=== PATIENT | male | born 1975 | race Hispanic/Latino ===

== ENCOUNTER 2018-02-22 20:35 | Inpatient (IN) | payer OTHER ==
--- NOTE | 2018-02-22 20:57 | C.PDOC ---
History Of Present Illness 42 year old male presents to the ED c/o burning sensation to right arm and not feeling well overall that started 3 hours ago. Patient states he had a CVA 3 months ago with residual right sided weakness and decreased temperature sensation. Patient reports he also noticed some swelling of his bilateral ankles. Patient denies fever, chills, nausea, vomit, diarrhea, CP, SOB. Time Seen by Provider: 02/22/18 20:57 Chief Complaint (Nursing): Weakness/Neurological Deficit History Per: Patient History/Exam Limitations: no limitations Onset/Duration Of Symptoms: Days Current Symptoms Are (Timing): Still Present Activity At Onset Of Symptoms: Other Seizure Or Post-ictal Symptoms: None Fall Associated With With Symptoms: No Severity: None Recent travel outside of the [place]: No Additional History Per: Patient - Symptoms Of CVA Character Of Deficits: Right: Sensory Loss (burning sensation and decreased temperature sensation), Arm: Sensory Loss Recent Aspirin Use: No Current Coumadin Use?: No Recent Head Trauma: No Past Medical History Reviewed: Historical Data, Nursing Documentation, Vital Signs Vital Signs: Last Vital Signs Temp 98.5 F 02/22/18 20:37 Pulse 117 H 02/22/18 20:37 Resp 20 02/22/18 20:37 BP 168/107 H 02/22/18 20:37 Pulse Ox 93 L 02/22/18 21:58 - Medical History PMH: HTN, Sleep Apnea Surgical History: Appendectomy Family History: States: No Known Family Hx - Social History Hx Alcohol Use: No Hx Substance Use: No - Immunization History Hx Tetanus Toxoid Vaccination: No Hx Influenza Vaccination: No Hx Pneumococcal Vaccination: No Review Of Systems Constitutional: Negative for: Fever, Chills Cardiovascular: Negative for: Chest Pain Respiratory: Negative for: Shortness of Breath Gastrointestinal: Negative for: Nausea, Vomiting, Abdominal Pain Skin: Negative for: Rash Neurological: Positive for: Weakness, Numbness. Negative for: Headache, Dizziness Physical Exam - Physical Exam Appears: Non-toxic, No Acute Distress Skin: Warm, Dry Head: Normacephalic Eye(s): left: Other (mild ptosis) Oral Mucosa: Moist Neck: Supple Chest: Symmetrical Cardiovascular: Rhythm Regular Respiratory: No Rales, No Rhonchi, No Wheezing Gastrointestinal/Abdominal: Soft, No Tenderness, No Guarding, No Rebound Back: Normal Inspection Extremity: Pedal Edema (trace B/L ), Capillary Refill (< 2 seconds) Extremity: Bilateral: Atraumatic, No Pedal Edema, Normal Color And Temperature Pulses: Left Dorsalis Pedis: Normal, Right Dorsalis Pedis: Normal Neurological/Psych: Oriented x3, Normal Speech Gait: With Assistance ED Course And Treatment - Laboratory Results Result Diagrams: 02/22/18 21:19 02/22/18 21:19 ECG: Interpreted By Me, Viewed By Me O2 Sat by Pulse Oximetry: 93 Pulse Ox Interpretation: Abnormal (palced on 2 l NC) - Radiology CXR: Interpreted by Me, Viewed By Me Progress Note: Plan: - CT head. - EKG. - Labs. - CXR NIHSS Stroke Scale 2 - Date/Time Evaluation Performed Date Performed: 02/22/18 Time Performed: 20:35 When Was NIHSS Performed: Baseline - How Severe is the Stroke Level of Consciousness: 0=Alert LOC to Questions: 0=Both comments correct LOC to commands: 0=Obeys both correctly Best Gaze: 0=Normal Visual: 0=No visual loss Facial: 0=Normal Motor Arm - Left: 0=No drift Motor Arm - Right: 0=No drift Motor Leg - Left: 0=No drift Motor Leg - Right: 0=No drift Limb Ataxia: 0=Absent Sensory: 1=Mild to moderate loss Best Language: 0=No aphasia Dysarthia: 0=Normal articulation Extinction & Inattention (Neglect): 0=Normal, no object Score: 1 Disposition Discussed With : Pilo Perez Comment: accepted the pt on his service and took over the care at 12:30 AM Doctor Will See Patient In The: ED Counseled Patient/Family Regarding: Studies Performed, Diagnosis - Disposition Disposition: HOSPITALIZED Disposition Time: 20:57 Condition: FAIR Forms: [facility] (Senegalese) - POA Present On Arrival: Poor Glycemic Control - Clinical Impression Clinical Impression: CHF (congestive heart failure), Paresthesias, Hyperglycemia, Right sided weakness - Scribe Statement The provider has reviewed the documentation as recorded by the Scribe Didier Drummond All medical record entries made by the Scribe were at my direction and personally dictated by me. I have reviewed the chart and agree that the record accurately reflects my personal performance of the history, physical exam, medical decision making, and the department course for this patient. I have also personally directed, reviewed, and agree with the discharge instructions and disposition.
[2018-02-22 21:29] LABS: BASO % 0.2 % (0.0-2.0); EOS # 0.5 K/uL (0.0-0.7); EOS % 6.2 % (0.0-4.0); HEMOGLOBIN 10.9 g/dL (12.0-18.0); LYMPH # 1.3 K/uL (1.0-4.3); LYMPH % 15.7 % (20.0-40.0); MEAN CELL VOLUME 86.5 fL (80.0-94.0); MEAN CORPUSCULAR HEMOGLOBIN 29.4 pg (27.0-31.0); MEAN PLATELET VOLUME 9.1 fL (7.2-11.7); MONO # 0.6 K/uL (0.0-0.8); MONO % 7.5 % (0.0-10.0); NEUT # 5.8 K/uL (1.8-7.0); NEUT % 70.4 % (50.0-75.0); RBC 3.69 Mil/uL (4.40-5.90); RED CELL DISTRIBUTION WIDTH 14.4 % (11.5-14.5); WHITE BLOOD COUNT 8.3 K/uL (4.8-10.8)
[2018-02-22 21:35] LABS: INR 1.3; PROTHROMBIN TIME 13.8 SECONDS (9.7-12.2)
[2018-02-22 21:38] LABS: ALB/GLOB RATIO 0.9 (1.0-2.1); ALBUMIN 3.4 g/dL (3.5-5.0); ALT/SGPT 24 U/L (21-72); AST/SGOT 20 U/L (17-59); BLOOD UREA NITROGEN 18 mg/dL (9-20); CALCIUM 8.7 mg/dl (8.6-10.4); GFR AFRICAN-AMERICAN > 60; GFR NON-AFRICAN AMERICAN > 60; HDL CHOLESTEROL 23 mg/dL (30-70)
[2018-02-22 21:49] LABS: LDL CHOLESTEROL 85 mg/dL (0-129)
--- NOTE | 2018-02-22 22:25 | CT ---
EXAM: CT Head Without Intravenous Contrast CLINICAL HISTORY: 42 years old, male; Pain; Headache and other: HX of CVA, r side paresthisias TECHNIQUE: Axial computed tomography images of the head/brain without intravenous contrast. All CT scans at this facility use one or more dose reduction techniques, viz.: automated exposure control; ma/kV adjustment per patient size (including targeted exams where dose is matched to indication; i.e. head); or iterative reconstruction technique. Coronal and sagittal reformatted images were created and reviewed. COMPARISON: No relevant prior studies available. FINDINGS: Brain: Mild atrophy. No intracranial hemorrhage. No mass. No definite edema. Ventricles: No hydrocephalus. Bones/joints: No acute fracture. Soft tissues: Unremarkable. Vasculature: Mild atherosclerotic disease of intracranial arteries. Sinuses: Mild mucosal thickening/air fluid level of LEFT maxillary sinus. Scattered minimal mucosal thickening of remaining sinuses. Mastoid air cells: No mastoid effusion. Orbits: Unremarkable as visualized. IMPRESSION: 1. No definite acute intracranial abnormality. Acute infarction may be CT occult within first 24 hours. If a focal deficit persists, consider followup CT or MRI for further evaluation. 2. Sinus disease. 3. Incidental/non-acute findings are described above.
[2018-02-23] MEDS ORDERED: Dextrose 50% SYRINGE Inj (50 ml) IV PRN (00:42)
[2018-02-23] MEDS ORDERED: Glucagon Recombinant 1 mg Inj IM PRN (00:42)
--- NOTE | 2018-02-23 01:20 | CP.PCM.HP ---
<Marcelino Crooks - Last Filed: 02/23/18 06:00> History of Present Illness - History of Present Illness History of Present Illness: This is a 42 yo male with past medical hx of stroke (November 2017), HTN, HLD, DM, insulin dependent, presenting today to [facility] ER with chief complaint of leg swelling x 1 day. Pt says he has been having a lot of trouble sleeping and is very depressed. He is on disability and thinking about financial issues. He also recently broke up with his girlfriend. He denies homicidal and suicidal ideation. He says he noticed that his legs were starting to swell and he asked a friend about it. The friend advised him to come to the ER as it could be a sign his heart was in trouble. He denies any chest pain, palpitations, shortness of breath. He had a stroke in November 2017. Initially he presented to [facility] in [place] and was subsequently transferred to [facility] in [place]. He stayed in [facility] for over 3 wks and had a gastric tube inserted. He was discharged to a rehab facility. He has never before seen a boot maker. He denies ever having a stress test or cath. He has a lot of exposure to secondhand smoke. PMD: Previously Dr. Bergman in [place], he just picked a new PMD in [place], [place] Specialists: Due to follow up with neurology but having insurance/financial issues PMH: IDDM, HTN, HLD, stroke PSH: G tube, appendectomy FH: Mother- - heart disease -father- - throat cancer Allergies: NKDA Home meds: asa 81 mg po daily, plavix 75 mg po daily, levemir 5 units sc daily, vitamin D 50,000 units q weekly (recently finished), atorvastatin 80 mg po daily Social hx: Does not smoke, but has a lot of exposure to secondhand smoke. No drinking. Denies drug use. Lives with aunt. 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 On disability. No pets. Born in [place]. Of [place] descent. Recent ER/hospitalizations: no records on file here. Code status: pt needs to clarify Present on Admission - Present on Admission Any Indicators Present on Admission: No History of DVT/PE: No History of Uncontrolled Diabetes: No Urinary Catheter: No Decubitus Ulcer Present: No Review of Systems - Constitutional Constitutional: absent: Chills, Fever - EENT Eyes: absent: Blurred Vision, Change in Vision Ears: Dizziness Nose/Mouth/Throat: absent: Nasal Discharge, Post Nasal Drip, Neck Pain - Cardiovascular Cardiovascular: absent: Chest Pain, Chest Pain at Rest, Diaphoresis, Dyspnea - Respiratory Respiratory: absent: Hemoptysis, Dyspnea on Exertion - Gastrointestinal Gastrointestinal: absent: Hematochezia, Nausea, Vomiting - Genitourinary Genitourinary: absent: Difficulty Urinating, Dysuria - Musculoskeletal Musculoskeletal: absent: Back Pain, Neck Pain - Integumentary Integumentary: absent: Bleeding Lesions, Changing Lesions - Neurological Neurological: Weakness. absent: Abnormal Speech, Behavioral Changes - Psychiatric Psychiatric: Abnormal Sleep Pattern, Anxiety - Hematologic/Lymphatic Hematologic: absent: Easy Bleeding, Easy Bruising Past Patient History - Infectious Disease Hx of Infectious Diseases: None - Tetanus Immunizations Tetanus Immunization: Unknown - Past Medical History & Family History Past Medical History?: Yes Pertinent Family History: heart disease in family - Past Social History Smoking Status: Never Smoked Chewing Tobacco Use: No Cigar Use: No Alcohol: None Drugs: Denies Home Situation {Lives}: With Family Domestic Violence: Negative - CARDIAC Hx Hypertension: Yes - PULMONARY Hx Sleep Apnea: Yes - NEUROLOGICAL HX Cerebrovascular Accident: Yes (3 months ago) - ENDOCRINE/METABOLIC Hx Diabetes Mellitus Type 2: Yes - PSYCHIATRIC Hx Substance Use: No - SURGICAL HISTORY Hx Appendectomy: Yes - ANESTHESIA Hx Anesthesia: Yes Hx Anesthesia Reactions: No Meds Allergies/Adverse Reactions: Allergies Allergy/AdvReac Type Severity Reaction Status Date / Time No Known Allergies Allergy Verified 02/22/18 20:47 Physical Exam - Constitutional Appears: Non-toxic, No Acute Distress - Head Exam Head Exam: ATRAUMATIC, NORMAL INSPECTION, NORMOCEPHALIC - Eye Exam Eye Exam: EOMI - ENT Exam ENT Exam: Mucous Membranes Moist - Neck Exam Neck exam: Positive for: Full Rom, Normal Inspection - Respiratory Exam Respiratory Exam: Decreased Breath Sounds. absent: Respiratory Distress - Cardiovascular Exam Cardiovascular Exam: Tachycardia, +S1, +S2 - GI/Abdominal Exam GI & Abdominal Exam: Normal Bowel Sounds, Soft. absent: Tenderness - Extremities Exam Extremities exam: Positive for: full ROM, pedal edema. Negative for: normal inspection - Neurological Exam Neurological exam: Alert, CN II-XII Intact, Oriented x3 - Psychiatric Exam Psychiatric exam: Flat Affect, Normal Mood - Skin Skin Exam: Dry, Intact, Normal Color, Warm Results - Vital Signs Recent Vital Signs: Last Vital Signs Temp 98.5 F 02/22/18 20:37 Pulse 106 H 02/23/18 00:40 Resp 12 02/23/18 00:40 BP 151/95 H 02/23/18 00:40 Pulse Ox 95 02/23/18 00:40 - Labs Result Diagrams: 02/22/18 21:19 02/22/18 21:19 Labs: Laboratory Results - last 24 hr 02/22/18 02/22/18 02/22/18 21:19 21:19 21:19 WBC 8.3 RBC 3.69 L Hgb 10.9 L Hct 31.9 L MCV 86.5 MCH 29.4 MCHC 34.0 RDW 14.4 Plt Count 245 MPV 9.1 Neut % (Auto) 70.4 Lymph % (Auto) 15.7 L [place] % (Auto) 7.5 Eos % (Auto) 6.2 H Baso % (Auto) 0.2 Neut # (Auto) 5.8 Lymph # (Auto) 1.3 [place] # (Auto) 0.6 Eos # (Auto) 0.5 Baso # (Auto) 0.0 PT 13.8 H INR 1.3 APTT 33 Sodium 142 Potassium 4.7 Chloride 102 Carbon Dioxide 32 H Anion Gap 14 BUN 18 Creatinine 1.2 Est GFR ( Amer) > 60 Est GFR (Non-Af Amer) > 60 Random Glucose 224 H Hemoglobin A1c Calcium 8.7 Total Bilirubin 1.4 H AST 20 ALT 24 Alkaline Phosphatase 87 Troponin I 0.0220 NT-Pro-B Natriuret Pep Total Protein 7.2 Albumin 3.4 L Globulin 3.8 Albumin/Globulin Ratio 0.9 L Triglycerides 196 H Cholesterol 137 LDL Cholesterol Direct 85 HDL Cholesterol 23 L 02/22/18 02/22/18 21:19 23:36 WBC RBC Hgb Hct MCV MCH MCHC RDW Plt Count MPV Neut % (Auto) Lymph % (Auto) [place] % (Auto) Eos % (Auto) Baso % (Auto) Neut # (Auto) Lymph # (Auto) [place] # (Auto) Eos # (Auto) Baso # (Auto) PT INR APTT Sodium Potassium Chloride Carbon Dioxide Anion Gap BUN Creatinine Est GFR ( Amer) Est GFR (Non-Af Amer) Random Glucose Hemoglobin A1c 6.7 H Calcium Total Bilirubin AST ALT Alkaline Phosphatase Troponin I NT-Pro-B Natriuret Pep 3690 H Total Protein Albumin Globulin Albumin/Globulin Ratio Triglycerides Cholesterol LDL Cholesterol Direct HDL Cholesterol Assessment & Plan - Assessment and Plan (Free Text) Assessment: This is a 42 yo male with past medical hx of HTN, HLD, DM, CVA presenting with 1. CHF exacerbation -CXR -trops x 3: 1st one negative -initial EKG sinus tachycardia 111 -no previous ekgs to compare -serial ekgs -cardio consult. Dr. Soni. recs appreciated. -echo pending -I/O -daily weight -lasix 40 mg IV daily -asa 81 mg po daily -HGB a1C 6.7 -lipid panel -TSH and free T4 pending -nasal cannula 2 L/min PRN 2. hx of HTN -continue metoprolol 100 mg po daily 3. hx of CVA -continue asa 81 mg po daily -continue plavix 75 mg po daily -PT/OT 4. hx of HLD -continue crestor 10 mg po hs 5. hx of DM -hypoglycemia protocol -regular insulin sliding scale -accuchecks -HGB a1C 6.7 6. Anemia -normocytic -LDH, haptoglobin -stool occult blood -iron studies 7. GI/DVT ppx -protonix 40 mg iv daily -SCDs -CCD diet discussed with Dr. Perez <Pilo Perez - Last Filed: 02/23/18 06:28> Results - Vital Signs Recent Vital Signs: Last Vital Signs Temp 98.0 F 02/23/18 05:32 Pulse 106 H 02/23/18 05:32 Resp 20 02/23/18 05:32 BP 154/90 H 02/23/18 05:32 Pulse Ox 96 02/23/18 05:32 - Labs Result Diagrams: 02/22/18 21:19 02/22/18 21:19 Labs: Laboratory Results - last 24 hr 02/22/18 02/22/18 02/22/18 21:19 21:19 21:19 WBC 8.3 RBC 3.69 L Hgb 10.9 L Hct 31.9 L MCV 86.5 MCH 29.4 MCHC 34.0 RDW 14.4 Plt Count 245 MPV 9.1 Neut % (Auto) 70.4 Lymph % (Auto) 15.7 L [place] % (Auto) 7.5 Eos % (Auto) 6.2 H Baso % (Auto) 0.2 Neut # (Auto) 5.8 Lymph # (Auto) 1.3 [place] # (Auto) 0.6 Eos # (Auto) 0.5 Baso # (Auto) 0.0 Haptoglobin PT 13.8 H INR 1.3 APTT 33 Sodium 142 Potassium 4.7 Chloride 102 Carbon Dioxide 32 H Anion Gap 14 BUN 18 Creatinine 1.2 Est GFR ( Amer) > 60 Est GFR (Non-Af Amer) > 60 POC Glucose (mg/dL) Random Glucose 224 H Hemoglobin A1c Calcium 8.7 Ferritin Total Bilirubin 1.4 H AST 20 ALT 24 Alkaline Phosphatase 87 Total Creatine Kinase CK-MB (Mass) Troponin I 0.0220 NT-Pro-B Natriuret Pep Total Protein 7.2 Albumin 3.4 L Globulin 3.8 Albumin/Globulin Ratio 0.9 L Triglycerides 196 H Cholesterol 137 LDL Cholesterol Direct 85 HDL Cholesterol 23 L 02/22/18 02/22/18 02/23/18 21:19 23:36 03:36 WBC RBC Hgb Hct MCV MCH MCHC RDW Plt Count MPV Neut % (Auto) Lymph % (Auto) [place] % (Auto) Eos % (Auto) Baso % (Auto) Neut # (Auto) Lymph # (Auto) [place] # (Auto) Eos # (Auto) Baso # (Auto) Haptoglobin PT INR APTT Sodium Potassium Chloride Carbon Dioxide Anion Gap BUN Creatinine Est GFR ( Amer) Est GFR (Non-Af Amer) POC Glucose (mg/dL) Random Glucose Hemoglobin A1c 6.7 H Calcium Ferritin 179.0 Total Bilirubin AST ALT Alkaline Phosphatase Total Creatine Kinase CK-MB (Mass) Troponin I NT-Pro-B Natriuret Pep 3690 H Total Protein Albumin Globulin Albumin/Globulin Ratio Triglycerides Cholesterol LDL Cholesterol Direct HDL Cholesterol 02/23/18 02/23/18 02/23/18 03:36 03:45 06:17 WBC RBC Hgb Hct MCV MCH MCHC RDW Plt Count MPV Neut % (Auto) Lymph % (Auto) [place] % (Auto) Eos % (Auto) Baso % (Auto) Neut # (Auto) Lymph # (Auto) [place] # (Auto) Eos # (Auto) Baso # (Auto) Haptoglobin 204.5 H PT INR APTT Sodium Potassium Chloride Carbon Dioxide Anion Gap BUN Creatinine Est GFR ( Amer) Est GFR (Non-Af Amer) POC Glucose (mg/dL) 194 H Random Glucose Hemoglobin A1c Calcium Ferritin Total Bilirubin AST ALT Alkaline Phosphatase Total Creatine Kinase 110 CK-MB (Mass) 1.99 Troponin I 0.0270 NT-Pro-B Natriuret Pep Total Protein Albumin Globulin Albumin/Globulin Ratio Triglycerides Cholesterol LDL Cholesterol Direct HDL Cholesterol Assessment & Plan - Date & Time Date: 02/23/18 (I have seen and examined the patient. I agree with the findings and plan of care as documented by Dr. Crooks. Patient with CHF exacerbation. Lasix IV. ROMIx3 with EKG. Aspirin and Statin. Cardio consult. Also with history of CVA and diabetes. Continue home meds. NISS and accuchecks. Monitor for acute changes.) Time: 06:27 Attending/Attestation - Attestation I have personally seen and examined this patient.: Yes I have fully participated in the care of the patient.: Yes I have reviewed all pertinent clinical information: Yes
[2018-02-23 04:12] LABS: CK-MB 1.99 ng/mL (0.0-3.38); TROPONIN I 0.027 ng/mL (0.00-0.120)
[2018-02-23 05:33] VITALS: RESP 20
[2018-02-23 07:08] LABS: FREE T4 1.31 ng/dL (0.78-2.19)
--- NOTE | 2018-02-23 07:50 | CP.PCM.PN ---
<HarryDodie rooney - Last Filed: 02/23/18 13:32> Subjective - Date & Time of Evaluation Date of Evaluation: 02/23/18 Time of Evaluation: 07:00 - Subjective Subjective: Medicine Progress Note: Patient was seen and examined at bedside in the AM. Patient states he has had leg swelling for a few days and his cousin told him to come to the ER to get evaluated. Patient states he has never been seen by a seafood fisherman in the past. He currently denies chest pain, palpitations, shortness of breath, nausea , vomiting, diarrhea or constipations. Objective - Vital Signs/Intake and Output Vital Signs (last 24 hours): Temp Pulse Resp BP Pulse Ox 98.0 F 106 H 20 154/90 H 96 02/23/18 05:32 02/23/18 05:32 02/23/18 05:32 02/23/18 05:32 02/23/18 05:32 - Medications Medications: Current Medications Aspirin (Aspirin Chewable) 81 mg PO DAILY [facility] Clopidogrel Bisulfate (Plavix) 75 mg PO DAILY [facility] Dextrose (Dextrose 50% Inj) 0 ml IV STAT PRN; Protocol PRN Reason: Hypoglycemia Protocol Dextrose (Glutose 15) 0 gm PO ONCE PRN; Protocol PRN Reason: Hypoglycemia Protocol Furosemide (Lasix) 40 mg IVP DAILY AN[facility] Glucagon (Glucagen Diagnostic Kit) 0 mg IM STAT PRN; Protocol PRN Reason: Hypoglycemia Protocol Dextrose (Dextrose 5% In Water 1000 Ml) 1,000 mls @ 0 mls/hr IV .Q0M PRN; Protocol; Per Protocol PRN Reason: Hypoglycemia Protocol Insulin Human Regular (Novolin R) 0 unit SC ACHS [facility] PRN Reason: Protocol Metoprolol Succinate (Toprol Xl) 100 mg PO DAILY ANTON[facility] Pantoprazole Sodium (Protonix Inj) 40 mg IVP DAILY [facility] Rosuvastatin Calcium (Crestor) 10 mg PO HS ANTONY - Labs Labs: 02/22/18 21:19 02/22/18 21:19 PT 13.8 SECONDS (9.7-12.2) H 02/22/18 21:19 INR 1.3 02/22/18 21:19 APTT 33 SECONDS (21-34) 02/22/18 21:19 - Constitutional Appears: No Acute Distress - Head Exam Head Exam: ATRAUMATIC, NORMAL INSPECTION - Eye Exam Eye Exam: EOMI, Normal appearance - ENT Exam ENT Exam: Mucous Membranes Moist - Respiratory Exam Respiratory Exam: Clear to Ausculation Bilateral, NORMAL BREATHING PATTERN - Cardiovascular Exam Cardiovascular Exam: REGULAR RHYTHM, +S1, +S2 - GI/Abdominal Exam GI & Abdominal Exam: Soft, Normal Bowel Sounds. absent: Tenderness - Extremities Exam Extremities Exam: Pedal Edema (+1 bilateral pedal edema ) - Neurological Exam Neurological Exam: Alert, Awake, Oriented x3 - Psychiatric Exam Psychiatric exam: Normal Affect, Normal Mood - Skin Skin Exam: Normal Color Assessment and Plan - Assessment and Plan (Free Text) Assessment: LE Swelling secondary to CHF exacerbation - Patient admitted to tele - ProBNP 3690 - Chest Xray: Right perihilar and medial basilar infiltrates. Questionable CHF pattern. - Trops x 2: Negative - Initial EKG sinus tachycardia 111; 2nd EKG Sinus tach 101 - Cardiology Consult: Dr. Schaffer --> help appreciated - f/u Echo - f/u LE dopplers - I/O - Daily weight - Medications * Lasix 40 mg IV BID * Aspirin 81 mg po daily - Nasal cannula 2 L/min PRN History of HTN - TSH 2.36; free T4 1.31 - Medications * Metoprolol 100 mg po daily * Lisinopril 10mg po daily (started 02/23/18) History of CVA in November 2017 - Continue Aspirin 81 mg po daily - Continue Plavix 75 mg po daily - PT/OT History of HLD - Continue Crestor 10 mg po HS - Lipid Panel: Triglycerides 196; Total Cholesterol 137; LDL 85; HDL 23 History of DM - Hypoglycemia protocol - Insulin sliding scale - Accuchecks - hA1c 6.7 History of Anemia - 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 Isaura Harry PGY-1 <Cody Delarosa - Last Filed: 02/23/18 15:47> Objective - Vital Signs/Intake and Output Vital Signs (last 24 hours): Temp Pulse Resp BP Pulse Ox 98.0 F 99 H 20 152/86 H 96 02/23/18 05:32 02/23/18 12:00 02/23/18 05:32 02/23/18 09:25 02/23/18 05:32 - Medications Medications: Current Medications Aspirin (Aspirin Chewable) 81 mg PO DAILY [facility] Last Admin: 02/23/18 09:23 Dose: 81 mg Clopidogrel Bisulfate (Plavix) 75 mg PO DAILY [facility] Last Admin: 02/23/18 09:23 Dose: 75 mg Dextrose (Dextrose 50% Inj) 0 ml IV STAT PRN; Protocol PRN Reason: Hypoglycemia Protocol Dextrose (Glutose 15) 0 gm PO ONCE PRN; Protocol PRN Reason: Hypoglycemia Protocol Docusate Sodium (Colace) 100 mg PO TID [facility] Last Admin: 02/23/18 10:38 Dose: 100 mg Famotidine (Pepcid) 20 mg PO BID [facility] Last Admin: 02/23/18 10:38 Dose: 20 mg Ferrous Sulfate (Feosol) 325 mg PO DAILY [facility] Last Admin: 02/23/18 10:38 Dose: 325 mg Furosemide (Lasix) 40 mg IVP BID [facility] Last Admin: 02/23/18 09:25 Dose: 40 mg Glucagon (Glucagen Diagnostic Kit) 0 mg IM STAT PRN; Protocol PRN Reason: Hypoglycemia Protocol Heparin Sodium (Porcine) (Heparin) 5,000 units SC Q8 [facility] Dextrose (Dextrose 5% In Water 1000 Ml) 1,000 mls @ 0 mls/hr IV .Q0M PRN; Protocol; Per Protocol PRN Reason: Hypoglycemia Protocol Insulin Human Regular (Novolin R) 0 unit SC ACHS [facility] PRN Reason: Protocol Last Admin: 02/23/18 12:46 Dose: 2 unit Lisinopril (Zestril) 10 mg PO DAILY [facility] Last Admin: 02/23/18 11:52 Dose: 10 mg Metoprolol Succinate (Toprol Xl) 100 mg PO DAILY [facility] Last Admin: 02/23/18 09:23 Dose: 100 mg Pneumococcal Polyvalent Vaccine (Pneumovax 23 Vaccine) 0.5 ml IM .ONCE ONE Stop: 02/25/18 10:01 Rosuvastatin Calcium (Crestor) 10 mg PO HS [facility] - Labs Labs: 02/23/18 10:18 02/23/18 10:53 PT 13.8 SECONDS (9.7-12.2) H 02/22/18 21:19 INR 1.3 02/22/18 21:19 APTT 33 SECONDS (21-34) 02/22/18 21:19 Attending/Attestation - Attestation I have personally seen and examined this patient.: Yes I have fully participated in the care of the patient.: Yes I have reviewed all pertinent clinical information, including history, physical exam and plan: Yes Notes (Text): 02/23/18 15:44 Medical attending: Patient was seen and examined by me. Agree with the above note by the resident The patient was not in any acute distress when we saw him. There was still some trace edema on lower extremtities. He had a chest XRAY last night, there is cardiomegaly on the film. He is pending an echo at this time. He has a history of DM as well as a recent CVA. It appears the CVA was quite severe as he required what appears to be a PEG tube he says. There is an area on the abdomen that looks like a closed off stoma site. He was at [facility] for sometime before he was then discharged to a rehabilitation center where he was for some time. Cody Delarosa
[2018-02-23 08:12] LABS: IRON 41 ug/dL (49-181); TOTAL IRON BINDING CAPACITY 274 ug/dL (250-450)
[2018-02-23 08:14] LABS: % IRON SATURATION 15 (20-55)
--- NOTE | 2018-02-23 08:16 | RAD ---
HISTORY: Code Stroke COMPARISON: No prior. FINDINGS: LUNGS: Right perihilar and medial basilar airspace disease identified with none on the left. PLEURA: No significant pleural effusion identified, no pneumothorax apparent. CARDIOVASCULAR: Cardiomegaly is present with potential pulmonary vascular congestion. OSSEOUS STRUCTURES: No significant abnormalities. VISUALIZED UPPER ABDOMEN: Normal. OTHER FINDINGS: None. IMPRESSION: Right perihilar and medial basilar infiltrates. Questionable CHF pattern. Clinically correlate further.
[2018-02-23] MEDS: (Novolin R) Insulin Human Regular 100 units/ml vial SC SCH ×4 (08:42→21:17)
[2018-02-23] MEDS: Metoprolol Succinate 100 mg XL Tab PO SCH (09:23)
[2018-02-23 10:21] LABS: BASO % 0.1 % (0.0-2.0); EOS # 0.4 K/uL (0.0-0.7); EOS % 4.9 % (0.0-4.0); LYMPH # 1.2 K/uL (1.0-4.3); LYMPH % 14.4 % (20.0-40.0); MEAN CELL VOLUME 87.6 fL (80.0-94.0); MEAN CORPUSCULAR HEMOGLOBIN 29.6 pg (27.0-31.0); MEAN CORPUSCULAR HGB CONC 33.8 g/dL (33.0-37.0); MEAN PLATELET VOLUME 9.5 fL (7.2-11.7); MONO # 0.6 K/uL (0.0-0.8); NEUT # 6.2 K/uL (1.8-7.0); NEUT % 73.6 % (50.0-75.0); RBC 3.72 Mil/uL (4.40-5.90); RED CELL DISTRIBUTION WIDTH 14.5 % (11.5-14.5); WHITE BLOOD COUNT 8.4 K/uL (4.8-10.8)
[2018-02-23 10:33] LABS: CK-MB 2.31 ng/mL (0.0-3.38)
[2018-02-23 10:37] LABS: TROPONIN I 0.026 ng/mL (0.00-0.120)
[2018-02-23 11:29] LABS: ALB/GLOB RATIO 0.9 (1.0-2.1); ALBUMIN 3.5 g/dL (3.5-5.0); ALT/SGPT 28 U/L (21-72); AST/SGOT 26 U/L (17-59); BLOOD UREA NITROGEN 20 mg/dL (9-20); CALCIUM 8.9 mg/dl (8.6-10.4); GFR AFRICAN-AMERICAN > 60; GFR NON-AFRICAN AMERICAN > 60
[2018-02-24 07:43] LABS: BASO % 0.1 % (0.0-2.0); EOS # 0.4 K/uL (0.0-0.7); EOS % 4.1 % (0.0-4.0); HEMOGLOBIN 11.1 g/dL (12.0-18.0); LYMPH # 0.9 K/uL (1.0-4.3); LYMPH % 9.6 % (20.0-40.0); MEAN CELL VOLUME 87.5 fL (80.0-94.0); MEAN CORPUSCULAR HEMOGLOBIN 29.8 pg (27.0-31.0); MEAN PLATELET VOLUME 9.4 fL (7.2-11.7); MONO # 0.7 K/uL (0.0-0.8); MONO % 7.1 % (0.0-10.0); NEUT # 7.6 K/uL (1.8-7.0); NEUT % 79.1 % (50.0-75.0); PLATELET COUNT 229 K/uL (130-400); RBC 3.72 Mil/uL (4.40-5.90); RED CELL DISTRIBUTION WIDTH 14.6 % (11.5-14.5); WHITE BLOOD COUNT 9.6 K/uL (4.8-10.8)
[2018-02-24 07:58] LABS: ALT/SGPT 14 U/L (21-72); AST/SGOT 22 U/L (17-59); BLOOD UREA NITROGEN 24 mg/dL (9-20); CALCIUM 8.9 mg/dl (8.6-10.4); GFR AFRICAN-AMERICAN > 60; GFR NON-AFRICAN AMERICAN > 60
[2018-02-24] MEDS: (Novolin R) Insulin Human Regular 100 units/ml vial SC SCH ×4 (08:00→21:43)
[2018-02-24 09:11] LABS: EOSINOPHIL 2 % (0-4); LYMPHOCYTE 4 % (20-40); MONOCYTE 2 % (0-10); NEUTROPHIL 92 % (50-75); PLATELET ESTIMATE NORMAL (NORMAL); TOTAL CELLS COUNTED 100
[2018-02-24] MEDS: Metoprolol Succinate 100 mg XL Tab PO SCH (09:42)
--- NOTE | 2018-02-24 11:36 | CARD ---
APPROVED REPORT EKG Measurement Heart [id number] <Conclusion> Sinus tachycardia Possible Left atrial enlargement Nonspecific T wave abnormality Abnormal ECG
--- NOTE | 2018-02-24 13:18 | CP.PCM.PN ---
<JoshuaLupe - Last Filed: 02/24/18 13:22> Subjective - Date & Time of Evaluation Date of Evaluation: 02/24/18 Time of Evaluation: 13:22 - Subjective Subjective: Progress Note Patient was seen and examined at bedside. Patient states that he is feeling better. Patient denies recent changes in vision, chest pain, palpitations, shortness of breath, nausea, vomiting, diarrhea or constipations. Objective - Vital Signs/Intake and Output Vital Signs (last 24 hours): Temp Pulse Resp BP Pulse Ox 97.8 F 102 H 20 146/87 94 L 02/24/18 07:10 02/24/18 07:35 02/24/18 07:10 02/24/18 09:42 02/24/18 07:10 Intake and Output: 02/24/18 02/24/18 06:59 18:59 Intake Total 480 Balance 480 - Medications Medications: Current Medications Aspirin (Aspirin Chewable) 81 mg PO DAILY [facility] Last Admin: 02/24/18 09:42 Dose: 81 mg Clopidogrel Bisulfate (Plavix) 75 mg PO DAILY [facility] Last Admin: 02/24/18 09:42 Dose: 75 mg Dextrose (Dextrose 50% Inj) 0 ml IV STAT PRN; Protocol PRN Reason: Hypoglycemia Protocol Dextrose (Glutose 15) 0 gm PO ONCE PRN; Protocol PRN Reason: Hypoglycemia Protocol Docusate Sodium (Colace) 100 mg PO TID [facility] Last Admin: 02/24/18 09:42 Dose: 100 mg Famotidine (Pepcid) 20 mg PO BID [facility] Last Admin: 02/24/18 09:41 Dose: 20 mg Ferrous Sulfate (Feosol) 325 mg PO DAILY [facility] Last Admin: 02/24/18 09:41 Dose: 325 mg Furosemide (Lasix) 40 mg IVP BID [facility] Last Admin: 02/24/18 09:42 Dose: 40 mg Glucagon (Glucagen Diagnostic Kit) 0 mg IM STAT PRN; Protocol PRN Reason: Hypoglycemia Protocol Heparin Sodium (Porcine) (Heparin) 5,000 units SC Q8 [facility] Last Admin: 02/24/18 05:35 Dose: 5,000 units Dextrose (Dextrose 5% In Water 1000 Ml) 1,000 mls @ 0 mls/hr IV .Q0M PRN; Protocol; Per Protocol PRN Reason: Hypoglycemia Protocol Insulin Human Regular (Novolin R) 0 unit SC ACHS [facility] PRN Reason: Protocol Last Admin: 02/24/18 12:30 Dose: 3 unit Lisinopril (Zestril) 10 mg PO DAILY [facility] Last Admin: 02/24/18 09:42 Dose: 10 mg Metoprolol Succinate (Toprol Xl) 100 mg PO DAILY [facility] Last Admin: 02/24/18 09:42 Dose: 100 mg Pneumococcal Polyvalent Vaccine (Pneumovax 23 Vaccine) 0.5 ml IM .ONCE ONE Stop: 02/25/18 10:01 Rosuvastatin Calcium (Crestor) 10 mg PO [facility] Last Admin: 02/23/18 21:20 Dose: 10 mg - Labs Labs: 02/24/18 07:25 02/24/18 07:25 PT 13.8 SECONDS (9.7-12.2) H 02/22/18 21:19 INR 1.3 02/22/18 21:19 APTT 33 SECONDS (21-34) 02/22/18 21:19 - Additional Findings Additional findings: - Head Exam Head Exam: ATRAUMATIC, NORMAL INSPECTION - Eye Exam Eye Exam: EOMI, Normal appearance - ENT Exam ENT Exam: Mucous Membranes Moist - Respiratory Exam Respiratory Exam: Clear to Ausculation Bilateral, NORMAL BREATHING PATTERN - Cardiovascular Exam Cardiovascular Exam: REGULAR RHYTHM, +S1, +S2 - GI/Abdominal Exam GI & Abdominal Exam: Soft, Normal Bowel Sounds. absent: Tenderness - Extremities Exam Extremities Exam: Pedal Edema (+1 bilateral pedal edema ) - Neurological Exam Neurological Exam: Alert, Awake, Oriented x3 - Psychiatric Exam Psychiatric exam: Normal Affect, Normal Mood - Skin Skin Exam: Normal Color Assessment and Plan - Assessment and Plan (Free Text) Assessment: LE Swelling, secondary to CHF exacerbation - Patient admitted to tele - ProBNP 3690 - Chest Xray: Right perihilar and medial basilar infiltrates. Questionable CHF pattern. - Trops x 2: Negative - Initial EKG sinus tachycardia 111; 2nd EKG Sinus tach 101 - Cardiology Consult: Dr. Schaffer - f/u Echo - f/u LE dopplers - F/u AM CXR 02/25 - I/O - Daily weight - Medications * Lasix 40 mg IV BID * Aspirin 81 mg po daily - Nasal cannula 2 L/min PRN History of HTN - TSH 2.36; free T4 1.31 - Medications * Metoprolol 100 mg po daily * Lisinopril 10mg po daily (started 02/23/18) History of CVA in November 2017 - Continue Aspirin 81 mg po daily - Continue Plavix 75 mg po daily - PT/OT: patient has a walker at bedside. 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 Isaura Harry PGY-1 <Cody Delarosa - Last Filed: 02/24/18 15:52> Objective - Vital Signs/Intake and Output Vital Signs (last 24 hours): Temp Pulse Resp BP Pulse Ox 97.8 F 102 H 20 146/87 94 L 02/24/18 07:10 02/24/18 07:35 02/24/18 07:10 02/24/18 09:42 02/24/18 07:10 Intake and Output: 02/24/18 02/24/18 06:59 18:59 Intake Total 480 400 Balance 480 400 - Medications Medications: Current Medications Aspirin (Aspirin Chewable) 81 mg PO DAILY [facility] Last Admin: 02/24/18 09:42 Dose: 81 mg Clopidogrel Bisulfate (Plavix) 75 mg PO DAILY [facility] Last Admin: 02/24/18 09:42 Dose: 75 mg Dextrose (Dextrose 50% Inj) 0 ml IV STAT PRN; Protocol PRN Reason: Hypoglycemia Protocol Dextrose (Glutose 15) 0 gm PO ONCE PRN; Protocol PRN Reason: Hypoglycemia Protocol Docusate Sodium (Colace) 100 mg PO TID [facility] Last Admin: 02/24/18 13:17 Dose: 100 mg Famotidine (Pepcid) 20 mg PO BID [facility] Last Admin: 02/24/18 09:41 Dose: 20 mg Ferrous Sulfate (Feosol) 325 mg PO DAILY [facility] Last Admin: 02/24/18 09:41 Dose: 325 mg Furosemide (Lasix) 40 mg PO DAILY [facility] Glucagon (Glucagen Diagnostic Kit) 0 mg IM STAT PRN; Protocol PRN Reason: Hypoglycemia Protocol Heparin Sodium (Porcine) (Heparin) 5,000 units SC Q8 [facility] Last Admin: 02/24/18 13:17 Dose: 5,000 units Dextrose (Dextrose 5% In Water 1000 Ml) 1,000 mls @ 0 mls/hr IV .Q0M PRN; Protocol; Per Protocol PRN Reason: Hypoglycemia Protocol Insulin Human Regular (Novolin R) 0 unit SC ACHS [facility] PRN Reason: Protocol Last Admin: 02/24/18 12:30 Dose: 3 unit Lisinopril (Zestril) 10 mg PO BID [facility] Metoprolol Succinate (Toprol Xl) 100 mg PO DAILY [facility] Last Admin: 02/24/18 09:42 Dose: 100 mg Pneumococcal Polyvalent Vaccine (Pneumovax 23 Vaccine) 0.5 ml IM .ONCE ONE Stop: 02/25/18 10:01 Rosuvastatin Calcium (Crestor) 10 mg PO HS [facility] Last Admin: 02/23/18 21:20 Dose: 10 mg Spironolactone (Aldactone) 25 mg PO DAILY [facility] - Labs Labs: 02/24/18 07:25 02/24/18 07:25 PT 13.8 SECONDS (9.7-12.2) H 02/22/18 21:19 INR 1.3 02/22/18 21:19 APTT 33 SECONDS (21-34) 02/22/18 21:19 Attending/Attestation - Attestation I have personally seen and examined this patient.: Yes I have fully participated in the care of the patient.: Yes I have reviewed all pertinent clinical information, including history, physical exam and plan: Yes Notes (Text): 02/24/18 15:52 Medical Attending: Patient was seen and examined by me, agree with the above note by medical records director. Patient was not in any acute distress when we saw him. He was calm, normal affect, answering questions appropriately He reported that his breathing has been better, and also the lower extremity edema which brought him and has also substantially decreased as well. Earlier in the day he underwent a echocardiogram, the results are still pending at this moment Cody Delarosa
--- NOTE | 2018-02-24 14:30 | CP.PCM.CON ---
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 He had a stroke, and was seen at [facility], then transferred to [facility]. Pt did not get TPA. Pt had an NGT, the g tube, due to poor swallowing. Pt was in our area, visiting a cousin. pt had increased leg edema, and came to the hospital. Pt has mild chf on the cxr, elevated BNP. Echo demonstrates LV EF of about 30-35%, cannot interpret diastolic function. No sig pulmonary HTN. ECG shows s tach, non specific st changes. Pt has residual weakness, sues a walker, has paind ans sensory deprivation right side, Right eye strabismus. No known CAD. Pos for HTN. Non compliant with sleep apnea treatment with cpap. Review of Systems - Review of Systems All systems: reviewed and no additional remarkable complaints except (as abovee) Past Patient History - Infectious Disease Hx of Infectious Diseases: None - Tetanus Immunizations Tetanus Immunization: Unknown - Past Medical History & Family History Past Medical History?: Yes - Past Social History Smoking Status: Never Smoked - CARDIAC Hx Hypertension: Yes - PULMONARY Hx Respiratory Disorders: Yes Hx Sleep Apnea: Yes - NEUROLOGICAL HX Cerebrovascular Accident: Yes - HEENT Hx HEENT Problems: No - RENAL Hx Chronic Kidney Disease: No - ENDOCRINE/METABOLIC Hx Endocrine Disorders: Yes Hx Diabetes Mellitus Type 2: Yes - HEMATOLOGICAL/ONCOLOGICAL Hx Blood Disorders: No - INTEGUMENTARY Hx Dermatological Problems: No - MUSCULOSKELETAL/RHEUMATOLOGICAL Hx Falls: Yes - GASTROINTESTINAL Hx Gastrointestinal Disorders: No - GENITOURINARY/GYNECOLOGICAL Hx Genitourinary Disorders: No - PSYCHIATRIC Hx Substance Use: No - SURGICAL HISTORY Hx Surgeries: Yes Hx Appendectomy: Yes Other/Comment: no other information added given by patient - ANESTHESIA Hx Anesthesia: Yes Hx Anesthesia Reactions: No Hx Malignant Hyperthermia: No Has any member of the family had a problem w/ anesthesia?: No Meds Allergies/Adverse Reactions: Allergies Allergy/AdvReac Type Severity Reaction Status Date / Time No Known Allergies Allergy Verified 02/22/18 20:47 - Medications Medications: Current Medications Aspirin (Aspirin Chewable) 81 mg PO DAILY [facility] Last Admin: 02/24/18 09:42 Dose: 81 mg Clopidogrel Bisulfate (Plavix) 75 mg PO DAILY [facility] Last Admin: 02/24/18 09:42 Dose: 75 mg Dextrose (Dextrose 50% Inj) 0 ml IV STAT PRN; Protocol PRN Reason: Hypoglycemia Protocol Dextrose (Glutose 15) 0 gm PO ONCE PRN; Protocol PRN Reason: Hypoglycemia Protocol Docusate Sodium (Colace) 100 mg PO TID [facility] Last Admin: 02/24/18 13:17 Dose: 100 mg Famotidine (Pepcid) 20 mg PO BID [facility] Last Admin: 02/24/18 09:41 Dose: 20 mg Ferrous Sulfate (Feosol) 325 mg PO DAILY [facility] Last Admin: 02/24/18 09:41 Dose: 325 mg Furosemide (Lasix) 40 mg IVP BID [facility] Last Admin: 02/24/18 09:42 Dose: 40 mg Glucagon (Glucagen Diagnostic Kit) 0 mg IM STAT PRN; Protocol PRN Reason: Hypoglycemia Protocol Heparin Sodium (Porcine) (Heparin) 5,000 units SC Q8 [facility] Last Admin: 02/24/18 13:17 Dose: 5,000 units Dextrose (Dextrose 5% In Water 1000 Ml) 1,000 mls @ 0 mls/hr IV .Q0M PRN; Protocol; Per Protocol PRN Reason: Hypoglycemia Protocol Insulin Human Regular (Novolin R) 0 unit SC ACHS [facility] PRN Reason: Protocol Last Admin: 02/24/18 12:30 Dose: 3 unit Lisinopril (Zestril) 10 mg PO DAILY [facility] Last Admin: 02/24/18 09:42 Dose: 10 mg Metoprolol Succinate (Toprol Xl) 100 mg PO DAILY [facility] Last Admin: 02/24/18 09:42 Dose: 100 mg Pneumococcal Polyvalent Vaccine (Pneumovax 23 Vaccine) 0.5 ml IM .ONCE ONE Stop: 02/25/18 10:01 Rosuvastatin Calcium (Crestor) 10 mg PO [facility] Last Admin: 02/23/18 21:20 Dose: 10 mg Physical Exam - Constitutional Appears: Well - Head Exam Head Exam: ATRAUMATIC - ENT Exam ENT Exam: Mucous Membranes Dry - Neck Exam Neck exam: Positive for: Full Rom - Respiratory Exam Respiratory Exam: Clear to Auscultation Bilateral - Cardiovascular Exam Cardiovascular Exam: REGULAR RHYTHM - GI/Abdominal Exam GI & Abdominal Exam: Normal Bowel Sounds - Exam External exam: Swelling - Extremities Exam Extremities exam: Positive for: pedal edema - Back Exam Back exam: NORMAL INSPECTION - Neurological Exam Neurological exam: Alert, Motor Sensory Deficit, Oriented x3, Reflexes Normal - Psychiatric Exam Psychiatric exam: Normal Affect, Normal Mood - Skin Skin Exam: Normal Color Results - Vital Signs Recent Vital Signs: Last Vital Signs Temp 97.8 F 02/24/18 07:10 Pulse 102 H 02/24/18 07:35 Resp 20 02/24/18 07:10 BP 146/87 02/24/18 09:42 Pulse Ox 94 L 02/24/18 07:10 - Labs Result Diagrams: 02/24/18 07:25 02/24/18 07:25 Labs: Laboratory Results - last 24 hr 02/22/18 02/23/18 02/23/18 20:50 16:31 20:50 WBC RBC Hgb Hct MCV MCH MCHC RDW Plt Count MPV Neut % (Auto) Lymph % (Auto) [place] % (Auto) Eos % (Auto) Baso % (Auto) Neut # (Auto) Lymph # (Auto) [place] # (Auto) Eos # (Auto) Baso # (Auto) Neutrophils % (Manual) Lymphocytes % (Manual) Monocytes % (Manual) Eosinophils % (Manual) Platelet Estimate RBC Morphology Sodium Potassium Chloride Carbon Dioxide Anion Gap BUN Creatinine Est GFR ( Amer) Est GFR (Non-Af Amer) POC Glucose (mg/dL) 252 H 173 H 149 H Random Glucose Calcium Phosphorus Magnesium Total Bilirubin AST ALT Alkaline Phosphatase Total Protein Albumin Globulin Albumin/Globulin Ratio 02/24/18 02/24/18 02/24/18 06:19 07:25 07:25 WBC 9.6 RBC 3.72 L Hgb 11.1 L Hct 32.5 L MCV 87.5 MCH 29.8 MCHC 34.0 RDW 14.6 H Plt Count 229 MPV 9.4 Neut % (Auto) 79.1 H Lymph % (Auto) 9.6 L [place] % (Auto) 7.1 Eos % (Auto) 4.1 H Baso % (Auto) 0.1 Neut # (Auto) 7.6 H Lymph # (Auto) 0.9 L [place] # (Auto) 0.7 Eos # (Auto) 0.4 Baso # (Auto) 0.0 Neutrophils % (Manual) 92 H Lymphocytes % (Manual) 4 L Monocytes % (Manual) 2 Eosinophils % (Manual) 2 Platelet Estimate Normal RBC Morphology Normal Sodium 145 Potassium 4.6 Chloride 99 Carbon Dioxide 36 H Anion Gap 15 BUN 24 H Creatinine 1.2 Est GFR ( Amer) > 60 Est GFR (Non-Af Amer) > 60 POC Glucose (mg/dL) 218 H Random Glucose 190 H Calcium 8.9 Phosphorus 5.1 H Magnesium 2.2 Total Bilirubin 1.2 AST 22 ALT 14 L D Alkaline Phosphatase 90 Total Protein 8.2 Albumin 4.0 Globulin 4.2 H Albumin/Globulin Ratio 1.0 02/24/18 11:19 WBC RBC Hgb Hct MCV MCH MCHC RDW Plt Count MPV Neut % (Auto) Lymph % (Auto) [place] % (Auto) Eos % (Auto) Baso % (Auto) Neut # (Auto) Lymph # (Auto) [place] # (Auto) Eos # (Auto) Baso # (Auto) Neutrophils % (Manual) Lymphocytes % (Manual) Monocytes % (Manual) Eosinophils % (Manual) Platelet Estimate RBC Morphology Sodium Potassium Chloride Carbon Dioxide Anion Gap BUN Creatinine Est GFR ( Amer) Est GFR (Non-Af Amer) POC Glucose (mg/dL) 295 H Random Glucose Calcium Phosphorus Magnesium Total Bilirubin AST ALT Alkaline Phosphatase Total Protein Albumin Globulin Albumin/Globulin Ratio - EKG Data EKG Interpreted by: Myself (as abov, possible old septal mi pattern.) Assessment & Plan - Assessment and Plan (Free Text) Assessment: 1. Cardiomyopathy: likely hypertensive etiology. Will increase lisinopril to bid , add aldactone. Will change to entresto as outpatient. 2. Follow k on aldactone 3. Pt will have an outpatient nulcera stress for cardiomyopaty, to exclude cad. 4. Pt is advised to have prolonged outpatient monitoring for possible afib: he has untreated sleep apnea, a risk factor, as well as HTN. Pt will either have a prolonged event monitor or loop recorder.
--- NOTE | 2018-02-24 22:44 | CARD ---
APPROVED REPORT EXAM: Two-dimensional and M-mode echocardiogram with Doppler and color Doppler. Other Information Quality : Good[employer] : INDICATION Congestive Heart Failure RISK FACTORS Diabetes 2D DIMENSIONS IVSd1.1 (0.7-1.1cm)Aortic Root (2D)3.1 (2.0-3.7cm) LVDd5.0 (3.9-5.9cm)PWd1.3 (0.7-1.1cm) LVDs4.5 (2.5-4.0cm)FS (%) 10.5 % LVEF (%)22.9 (>50%) M-Mode DIMENSIONS RVDd2.21 (2.1-3.2cm)Left Atrium (MM)5.52 (2.5-4.0cm) IVSd1.07 (0.7-1.1cm)Aortic Root2.82 (2.2-3.7cm) LVDd5.60 (4.0-5.6cm)Aortic Cusp Exc.1.85 (1.5-2.0cm) PWd1.24 (0.7-1.1cm)FS (%) 8 % LVDs5.14 (2.0-3.8cm)LVEF (%)20 (>50%) Mitral Valve MV E Iboupdrm785.7cm/sE/A ratio0.0 TDI E/Lateral E'0.0E/Medial E'0.0 Tricuspid Valve TR Peak [id number]/sTR Peak Gr.[id number] LEFT VENTRICLE There is borderline to mild asymmetric left ventricular hypertrophy. Left ventricle systolic functionsystolic function is severely impaired. The Ejection Fraction is 20-25%. There is global hypokinesis of the left ventricle. The left ventricular diastolic function is normal. No left ventricle thrombus noted on this study. RIGHT VENTRICLE The right ventricle is normal size. The right ventricular systolic function is normal. ATRIA The left atrium is moderately dilated. The right atrium size is normal. AORTIC VALVE The aortic valve is mildly to moderately thickened. The aortic valve is trileaflet. No aortic regurgitation is present. There is no aortic valvular stenosis. There is no aortic valvular vegetation. MITRAL VALVE Mitral annular calcification is mild to moderate. There is no evidence of mitral valve prolapse. There is no mitral valve stenosis. Mitral regurgitation is mild. TRICUSPID VALVE The tricuspid valve is normal in structure. There is mildmild tricuspid regurgitation. Right ventricular systolic pressure is estimated at 40-50 mmHg. There is mild pulmonary hypertension. There is no tricuspid valve prolapse or vegetation. There is no tricuspid valve stenosis. PULMONIC VALVE The pulmonary valve is normal in structure. There is trace to mild pulmonic valvular regurgitation. There is no pulmonic valvular stenosis. GREAT VESSELS The aortic root is normal in size. The IVC collapses <50% with inspiration. PERICARDIAL EFFUSION There is no pericardial effusion. There is no pleural effusion. <Conclusion> There is borderline to mild asymmetric left ventricular hypertrophy. The left ventricular diastolic function is normal. Left ventricle systolic functionsystolic function is severely impaired. The Ejection Fraction is 20-25%. There is global hypokinesis of the left ventricle. The right ventricle is normal size. The right ventricular systolic function is normal. The left atrium is moderately dilated. The right atrium size is normal. Mitral regurgitation is mild. There is mild tricuspid regurgitation. There is trace to mild pulmonic valvular regurgitation.
[2018-02-25 07:36] LABS: BASO % 0.2 % (0.0-2.0); EOS # 0.4 K/uL (0.0-0.7); EOS % 5.4 % (0.0-4.0); HEMOGLOBIN 11.1 g/dL (12.0-18.0); LYMPH # 1.2 K/uL (1.0-4.3); LYMPH % 16.5 % (20.0-40.0); MEAN CORPUSCULAR HEMOGLOBIN 29.5 pg (27.0-31.0); MEAN CORPUSCULAR HGB CONC 33.9 g/dL (33.0-37.0); MEAN PLATELET VOLUME 9.4 fL (7.2-11.7); MONO # 0.6 K/uL (0.0-0.8); MONO % 7.6 % (0.0-10.0); NEUT # 5.3 K/uL (1.8-7.0); NEUT % 70.3 % (50.0-75.0); RBC 3.77 Mil/uL (4.40-5.90); RED CELL DISTRIBUTION WIDTH 14.7 % (11.5-14.5); WHITE BLOOD COUNT 7.5 K/uL (4.8-10.8)
[2018-02-25 08:14] LABS: ALT/SGPT 18 U/L (21-72); AST/SGOT 20 U/L (17-59); BLOOD UREA NITROGEN 24 mg/dL (9-20); CALCIUM 8.6 mg/dl (8.6-10.4); GFR AFRICAN-AMERICAN > 60; GFR NON-AFRICAN AMERICAN > 60
[2018-02-25] MEDS: (Novolin R) Insulin Human Regular 100 units/ml vial SC SCH ×2 (08:27→17:28)
--- NOTE | 2018-02-25 08:57 | RAD ---
HISTORY: chf COMPARISON: 02/22/2018 FINDINGS: LUNGS: No active pulmonary disease. PLEURA: No significant pleural effusion identified, no pneumothorax apparent. CARDIOVASCULAR: Normal. OSSEOUS STRUCTURES: No significant abnormalities. VISUALIZED UPPER ABDOMEN: Normal. OTHER FINDINGS: None. IMPRESSION: No active disease.
[2018-02-25] MEDS: Metoprolol Succinate 100 mg XL Tab PO SCH (09:24)
[2018-02-25] MEDS ORDERED: Pneumococcal 23-Valent Vaccine IM ONE (10:00)
--- NOTE | 2018-02-25 11:23 | VASCLAB ---
PROCEDURE: Lower Extremity Venous Duplex Exam. HISTORY: LE swelling PRIORS: None. TECHNIQUE: Bilateral common femoral, femoral, popliteal and posterior tibial, peroneal and great saphenous veins were evaluated. Flow was assessed with color Doppler, compressibility, assessment of phasic flow and augmentation response. Report prepared by ANNIE Brown, RVT FINDINGS: RIGHT: 1. Common Femoral Vein: 1.1. Compressibility - Fully compressible: Thrombus - None : Flow - Phasic: Augmentation -Normal: Reflux - None. 2. Femoral Vein: 2.1. Compressibility - Fully compressible: Thrombus - None : Flow - Phasic: Augmentation -Normal: Reflux - None. 3. Popliteal Vein: 3.1. Compressibility - Fully compressible: Thrombus - None : Flow - Phasic: Augmentation -Normal: Reflux - None. 4. Posterior Tibial Vein: 4.1. Compressibility - Fully compressible: Thrombus - None: Flow - Phasic: Augmentation -Normal: Reflux - None. 5. Peroneal Vein: 5.1. Compressibility - Fully compressible: Thrombus - None: Flow - Phasic: Augmentation -Normal: Reflux - None. 6. Great Saphenous Vein: 6.1. Compressibility - Fully compressible: Thrombus - None: Flow - Phasic: Augmentation - Normal: Reflux - None. LEFT: 1. Common Femoral Vein: 1.1. Compressibility - Fully compressible: Thrombus - None: Flow - Phasic: Augmentation -Normal: Reflux - None. 2. Femoral Vein: 2.1. Compressibility - Fully compressible: Thrombus - None: Flow - Phasic: Augmentation -Normal: Reflux - None. 3. Popliteal Vein: 3.1. Compressibility - Fully compressible: Thrombus - None : Flow - Phasic: Augmentation -Normal: Reflux - None. 4. Posterior Tibial Vein: 4.1. Compressibility - Fully compressible: Thrombus - None: Flow - Phasic: Augmentation -Normal: Reflux - None. 5. Peroneal Vein: 5.1. Compressibility - Fully compressible: Thrombus - None: Flow - Phasic: Augmentation -Normal: Reflux - None. 6. Great Saphenous Vein: 6.1. Compressibility - Fully compressible: Thrombus - None: Flow - Phasic: Augmentation - Normal: Reflux - None. OTHER FINDINGS: Right: None significant. Left: None significant. IMPRESSION: Right: No evidence of deep or superficial vein thrombosis of the right lower extremity. Normal valve function noted of the right side. Left: No evidence of deep or superficial vein thrombosis of the left lower extremity. Normal valve function noted of the left side.
[2018-02-25 15:50] VITALS: BP 123/70; PULSE 89; TEMP 98.1; O2SAT 98
--- NOTE | 2018-02-25 16:24 | CP.PCM.DIS ---
<JoshuaLupe - Last Filed: 02/25/18 16:27> Provider - Provider Date of Admission: 02/23/18 00:31 Attending physician: Cody Delarosa DO Consults: Dr. Schaffer Time Spent in preparation of Discharge (in minutes): 35 Hospital Course - Lab Results Lab Results: Most Recent Lab Values WBC 7.5 K/uL (4.8-10.8) 02/25/18 07:12 RBC 3.77 Mil/uL (4.40-5.90) L 02/25/18 07:12 Hgb 11.1 g/dL (12.0-18.0) L 02/25/18 07:12 Hct 32.8 % (35.0-51.0) L 02/25/18 07:12 MCV 87.0 fL (80.0-94.0) 02/25/18 07:12 MCH 29.5 pg (27.0-31.0) 02/25/18 07:12 MCHC 33.9 g/dL (33.0-37.0) 02/25/18 07:12 RDW 14.7 % (11.5-14.5) H 02/25/18 07:12 Plt Count 233 K/uL (130-400) 02/25/18 07:12 MPV 9.4 fL (7.2-11.7) 02/25/18 07:12 Neut % (Auto) 70.3 % (50.0-75.0) 02/25/18 07:12 Lymph % (Auto) 16.5 % (20.0-40.0) L 02/25/18 07:12 [place] % (Auto) 7.6 % (0.0-10.0) 02/25/18 07:12 Eos % (Auto) 5.4 % (0.0-4.0) H 02/25/18 07:12 Baso % (Auto) 0.2 % (0.0-2.0) 02/25/18 07:12 Neut # (Auto) 5.3 K/uL (1.8-7.0) 02/25/18 07:12 Lymph # (Auto) 1.2 K/uL (1.0-4.3) 02/25/18 07:12 [place] # (Auto) 0.6 K/uL (0.0-0.8) 02/25/18 07:12 Eos # (Auto) 0.4 K/uL (0.0-0.7) 02/25/18 07:12 Baso # (Auto) 0.0 K/uL (0.0-0.2) 02/25/18 07:12 Neutrophils % (Manual) 92 % (50-75) H 02/24/18 07:25 Lymphocytes % (Manual) 4 % (20-40) L 02/24/18 07:25 Monocytes % (Manual) 2 % (0-10) 02/24/18 07:25 Eosinophils % (Manual) 2 % (0-4) 02/24/18 07:25 Platelet Estimate Normal (NORMAL) 02/24/18 07:25 RBC Morphology Normal 02/24/18 07:25 Haptoglobin 204.5 mg/dL (30.0-200.0) H 02/23/18 03:36 PT 13.8 SECONDS (9.7-12.2) H 02/22/18 21:19 INR 1.3 02/22/18 21:19 APTT 33 SECONDS (21-34) 02/22/18 21:19 Sodium 144 mmol/L (132-148) 02/25/18 07:12 Potassium 4.5 mmol/L (3.6-5.2) 02/25/18 07:12 Chloride 100 mmol/L (98-107) 02/25/18 07:12 Carbon Dioxide 34 mmol/L (22-30) H 02/25/18 07:12 Anion Gap 14 (10-20) 02/25/18 07:12 BUN 24 mg/dL (9-20) H 02/25/18 07:12 Creatinine 1.2 mg/dL (0.8-1.5) 02/25/18 07:12 Est GFR ( Amer) > 60 02/25/18 07:12 Est GFR (Non-Af Amer) > 60 02/25/18 07:12 POC Glucose (mg/dL) 208 mg/dL (65-110) H 02/25/18 11:22 Random Glucose 172 mg/dL (75-110) H 02/25/18 07:12 Hemoglobin A1c 6.7 % (4.2-6.5) H 02/22/18 21:19 Calcium 8.6 mg/dl (8.6-10.4) 02/25/18 07:12 Phosphorus 4.2 mg/dL (2.5-4.5) 02/25/18 07:12 Magnesium 2.2 mg/dL (1.6-2.3) 02/25/18 07:12 Iron 41 ug/dL (49-181) L 02/23/18 03:36 TIBC 274 ug/dL (250-450) 02/23/18 03:36 % Saturation 15 (20-55) L 02/23/18 03:36 Ferritin 179.0 ng/mL 02/23/18 03:36 Total Bilirubin 1.1 mg/dL (0.2-1.3) 02/25/18 07:12 AST 20 U/L (17-59) 02/25/18 07:12 ALT 18 U/L (21-72) L D 02/25/18 07:12 Alkaline Phosphatase 85 U/L (38-126) 02/25/18 07:12 Lactate Dehydrogenase 479 U/L (313-618) 02/23/18 03:36 Total Creatine Kinase 126 U/L (55-170) 02/23/18 09:33 CK-MB (Mass) 2.31 ng/mL (0.0-3.38) 02/23/18 09:33 Troponin I 0.0260 ng/mL (0.00-0.120) 02/23/18 09:33 NT-Pro-B Natriuret Pep 3690 pg/mL (0-450) H 02/22/18 23:36 Total Protein 8.0 g/dL (6.3-8.3) 02/25/18 07:12 Albumin 4.0 g/dL (3.5-5.0) 02/25/18 07:12 Globulin 4.1 gm/dL (2.2-3.9) H 02/25/18 07:12 Albumin/Globulin Ratio 1.0 (1.0-2.1) 02/25/18 07:12 Triglycerides 196 mg/dL (0-149) H 02/22/18 21:19 Cholesterol 137 mg/dL (0-199) 02/22/18 21:19 LDL Cholesterol Direct 85 mg/dL (0-129) 02/22/18 21:19 HDL Cholesterol 23 mg/dL (30-70) L 02/22/18 21:19 Free T4 1.31 ng/dL (0.78-2.19) 02/23/18 03:36 TSH 3rd Generation 2.36 mIU/L (0.46-4.68) 02/23/18 03:36 Stool Occult Blood Negative (NEGATIVE) 02/23/18 13:48 - Hospital Course Hospital Course: HPI This is a 42 yo male with past medical hx of stroke (November 2017), HTN, HLD, DM, insulin dependent, presenting today to [facility] ER with chief complaint of leg swelling x 1 day. Pt says he has been having a lot of trouble sleeping and is very depressed. He is on disability and thinking about financial issues. He also recently broke up with his girlfriend. He denies homicidal and suicidal ideation. He says he noticed that his legs were starting to swell and he asked a friend about it. The friend advised him to come to the ER as it could be a sign his heart was in trouble. He denies any chest pain, palpitations, shortness of breath. He had a stroke in November 2017. Initially he presented to [facility] in [place] and was subsequently transferred to [facility] in [place]. He stayed in [facility] for over 3 wks and had a gastric tube inserted. He was discharged to a rehab facility. He has never before seen a pediatric sports medicine specialist. He denies ever having a stress test or cath. He has a lot of exposure to secondhand smoke. Hospital course Patient had echo done. Troponins negative. Dr. Schaffer came to see patient. Patient to follow up outpatient for stress test Patient to be discharged on: continue on home medications Patient to follow up with Dr. Schaffer outpatient for follow up for cardiology Patient to establish care with Dr. Lee outpatient - Date & Time of H&P Date of H&P: 02/25/18 Time of H&P: 16:23 Discharge Exam - Head Exam Head Exam: ATRAUMATIC, NORMAL INSPECTION, NORMOCEPHALIC - Eye Exam Eye Exam: EOMI, Normal appearance Pupil Exam: NORMAL ACCOMODATION, PERRL - ENT Exam ENT Exam: Mucous Membranes Moist, Normal Exam - Neck Exam Neck exam: Full Rom - Respiratory Exam Respiratory Exam: NORMAL BREATHING PATTERN. absent: Accessory Muscle Use, Decreased Breath Sounds - Cardiovascular Exam Cardiovascular Exam: REGULAR RHYTHM, +S1, +S2. absent: Bradycardia, Tachycardia - GI/Abdominal Exam GI & Abdominal Exam: Normal Bowel Sounds, Soft. absent: Unremarkable - Extremities Exam Extremities exam: full ROM - Neurological Exam Neurological exam: Alert, CN II-XII Intact, Normal Gait - Psychiatric Exam Psychiatric exam: Normal Affect, Normal Mood - Skin Skin Exam: Dry, Intact, Normal Color, Warm Discharge Plan - Follow Up Plan Condition: FAIR Disposition: HOME/ ROUTINE Instructions: Heart Failure (DC), Pacemaker (DC), Pulmonary Edema (DC), Ascites (DC) Additional Instructions: Patient to follow up with Dr. Schaffer outpatient for follow up for cardiology Patient to establish care with Dr. Lee outpatient Referrals: Gustavo Schafefr MD [Staff Provider] - Shamika Lee MD [Staff Provider] - <Cody Delarosa - Last Filed: 02/25/18 17:23> Provider - Provider Date of Admission: 02/23/18 00:31 Attending physician: Cody Delarosa DO Hospital Course - Lab Results Lab Results: Most Recent Lab Values WBC 7.5 K/uL (4.8-10.8) 02/25/18 07:12 RBC 3.77 Mil/uL (4.40-5.90) L 02/25/18 07:12 Hgb 11.1 g/dL (12.0-18.0) L 02/25/18 07:12 Hct 32.8 % (35.0-51.0) L 02/25/18 07:12 MCV 87.0 fL (80.0-94.0) 02/25/18 07:12 MCH 29.5 pg (27.0-31.0) 02/25/18 07:12 MCHC 33.9 g/dL (33.0-37.0) 02/25/18 07:12 RDW 14.7 % (11.5-14.5) H 02/25/18 07:12 Plt Count 233 K/uL (130-400) 02/25/18 07:12 MPV 9.4 fL (7.2-11.7) 02/25/18 07:12 Neut % (Auto) 70.3 % (50.0-75.0) 02/25/18 07:12 Lymph % (Auto) 16.5 % (20.0-40.0) L 02/25/18 07:12 [place] % (Auto) 7.6 % (0.0-10.0) 02/25/18 07:12 Eos % (Auto) 5.4 % (0.0-4.0) H 02/25/18 07:12 Baso % (Auto) 0.2 % (0.0-2.0) 02/25/18 07:12 Neut # (Auto) 5.3 K/uL (1.8-7.0) 02/25/18 07:12 Lymph # (Auto) 1.2 K/uL (1.0-4.3) 02/25/18 07:12 [place] # (Auto) 0.6 K/uL (0.0-0.8) 02/25/18 07:12 Eos # (Auto) 0.4 K/uL (0.0-0.7) 02/25/18 07:12 Baso # (Auto) 0.0 K/uL (0.0-0.2) 02/25/18 07:12 Neutrophils % (Manual) 92 % (50-75) H 02/24/18 07:25 Lymphocytes % (Manual) 4 % (20-40) L 02/24/18 07:25 Monocytes % (Manual) 2 % (0-10) 02/24/18 07:25 Eosinophils % (Manual) 2 % (0-4) 02/24/18 07:25 Platelet Estimate Normal (NORMAL) 02/24/18 07:25 RBC Morphology Normal 02/24/18 07:25 Haptoglobin 204.5 mg/dL (30.0-200.0) H 02/23/18 03:36 PT 13.8 SECONDS (9.7-12.2) H 02/22/18 21:19 INR 1.3 02/22/18 21:19 APTT 33 SECONDS (21-34) 02/22/18 21:19 Sodium 144 mmol/L (132-148) 02/25/18 07:12 Potassium 4.5 mmol/L (3.6-5.2) 02/25/18 07:12 Chloride 100 mmol/L (98-107) 02/25/18 07:12 Carbon Dioxide 34 mmol/L (22-30) H 02/25/18 07:12 Anion Gap 14 (10-20) 02/25/18 07:12 BUN 24 mg/dL (9-20) H 02/25/18 07:12 Creatinine 1.2 mg/dL (0.8-1.5) 02/25/18 07:12 Est GFR ( Amer) > 60 02/25/18 07:12 Est GFR (Non-Af Amer) > 60 02/25/18 07:12 POC Glucose (mg/dL) 200 mg/dL (65-110) H 02/25/18 16:03 Random Glucose 172 mg/dL (75-110) H 02/25/18 07:12 Hemoglobin A1c 6.7 % (4.2-6.5) H 02/22/18 21:19 Calcium 8.6 mg/dl (8.6-10.4) 02/25/18 07:12 Phosphorus 4.2 mg/dL (2.5-4.5) 02/25/18 07:12 Magnesium 2.2 mg/dL (1.6-2.3) 02/25/18 07:12 Iron 41 ug/dL (49-181) L 02/23/18 03:36 TIBC 274 ug/dL (250-450) 02/23/18 03:36 % Saturation 15 (20-55) L 02/23/18 03:36 Ferritin 179.0 ng/mL 02/23/18 03:36 Total Bilirubin 1.1 mg/dL (0.2-1.3) 02/25/18 07:12 AST 20 U/L (17-59) 02/25/18 07:12 ALT 18 U/L (21-72) L D 02/25/18 07:12 Alkaline Phosphatase 85 U/L (38-126) 02/25/18 07:12 Lactate Dehydrogenase 479 U/L (313-618) 02/23/18 03:36 Total Creatine Kinase 126 U/L (55-170) 02/23/18 09:33 CK-MB (Mass) 2.31 ng/mL (0.0-3.38) 02/23/18 09:33 Troponin I 0.0260 ng/mL (0.00-0.120) 02/23/18 09:33 NT-Pro-B Natriuret Pep 3690 pg/mL (0-450) H 02/22/18 23:36 Total Protein 8.0 g/dL (6.3-8.3) 02/25/18 07:12 Albumin 4.0 g/dL (3.5-5.0) 02/25/18 07:12 Globulin 4.1 gm/dL (2.2-3.9) H 02/25/18 07:12 Albumin/Globulin Ratio 1.0 (1.0-2.1) 02/25/18 07:12 Triglycerides 196 mg/dL (0-149) H 02/22/18 21:19 Cholesterol 137 mg/dL (0-199) 02/22/18 21:19 LDL Cholesterol Direct 85 mg/dL (0-129) 02/22/18 21:19 HDL Cholesterol 23 mg/dL (30-70) L 02/22/18 21:19 Free T4 1.31 ng/dL (0.78-2.19) 02/23/18 03:36 TSH 3rd Generation 2.36 mIU/L (0.46-4.68) 02/23/18 03:36 Stool Occult Blood Negative (NEGATIVE) 02/23/18 13:48 Attending/Attestation - Attestation I have personally seen and examined this patient.: Yes I have fully participated in the care of the patient.: Yes I have reviewed all pertinent clinical information, including history, physical exam and plan: Yes Notes (Text): 02/25/18 17:19 Medical attending: Patient was seen and examined by me. Agree with the above note by the resident The patient was not in any acute distress when we saw him. He denied chest pain , denied shortness of breath. Cardiology has adjusted his lisinopril and also added aldactone. Per cardiology will need out patient follow up. Patient explains he has been recently moving and is staying with family at this time and plans to stay in the area. We strongly encouraged him to follow up with cardiology as well as find a new primary care physician. We discussed also his diabetes - he explains he still has enough medications at home and also he has enough testing supplies. He needs to make sure to take medication for his CHF as well as his DM thank you Cody Delarosa
== END 2018-02-25 18:47 | disposition home or self-care (01) | DRG 293 ==
LOC: EDBD 20:35 → C.ER 20:35 → C.9E 02-23 00:31 → C.5S 02-23 04:58
PROVIDERS: ADMIT Family Medicine; ATTEND Hospitalist
DX: I11.0 Hypertensive heart disease with heart failure (principal); I42.9 Cardiomyopathy, unspecified; H50.9 Unspecified strabismus; G47.30 Sleep apnea, unspecified; E78.5 Hyperlipidemia, unspecified; E11.9 Type 2 diabetes mellitus without complications; D64.9 Anemia, unspecified; Z79.4 Long term (current) use of insulin; Z91.19 Patient's noncompliance with other medical treatment and regimen; I50.9 Heart failure, unspecified

== ENCOUNTER 2018-02-27 22:02 | Emergency (ER) | payer OTHER ==
[2018-02-27 22:18] VITALS: RESP 20; TEMP 98.7
--- NOTE | 2018-02-27 23:50 | C.PDOC ---
History Of Present Illness 42 year old male presents to the emergency department with complaints of swollen ankles as well as anxiety. Patient was recently discharged on February 25 for similar complaints of mild CHF. Patient has a history of hypertension, diabetes, and stroke. Patient reports his stress is due to his recent breakup with his girlfriend. Time Seen by Provider: 02/27/18 23:50 Chief Complaint (Nursing): Dizziness/Lightheaded History Per: Patient History/Exam Limitations: no limitations Onset/Duration Of Symptoms: Hrs Past Medical History Reviewed: Historical Data, Nursing Documentation, Vital Signs Vital Signs: Last Vital Signs Temp 98.7 F 02/27/18 22:13 Pulse 110 H 02/27/18 22:13 Resp 20 02/27/18 22:13 BP 150/82 02/27/18 22:13 Pulse Ox 95 02/28/18 01:33 - Medical History PMH: CHF, CVA, Diabetes, HTN, Sleep Apnea Denies: Chronic Kidney Disease Surgical History: Appendectomy Family History: States: No Known Family Hx - Social History Hx Alcohol Use: No Hx Substance Use: No - Immunization History Hx Tetanus Toxoid Vaccination: No Hx Influenza Vaccination: No Hx Pneumococcal Vaccination: No Review Of Systems Musculoskeletal: Positive for: Foot Pain (ankles swollen) Psych: Positive for: Anxiety, Other (stress) Physical Exam - Physical Exam Appears: Non-toxic, No Acute Distress Skin: Warm, Dry Head: Atraumatic Eye(s): bilateral: Normal Inspection Oral Mucosa: Moist Neck: Trachea Midline, Supple Chest: Symmetrical Cardiovascular: Rhythm Regular, No Murmur Respiratory: No Rales, No Rhonchi, No Wheezing, Other (speaking complete sentences) Gastrointestinal/Abdominal: Soft, No Tenderness, No Distention Back: Normal Inspection Extremity: Normal ROM, No Tenderness Extremity: Bilateral: Atraumatic, Normal ROM Pulses: Left Dorsalis Pedis: Normal, Right Dorsalis Pedis: Normal Neurological/Psych: Oriented x3 ED Course And Treatment - Laboratory Results Result Diagrams: 02/28/18 00:12 02/28/18 00:12 ECG: Interpreted By Me, Viewed By Me ECG Rhythm: Sinus Rhythm, Nonspecific Changes O2 Sat by Pulse Oximetry: 95 (RA) Pulse Ox Interpretation: Normal - Radiology CXR: Interpreted by Me, Viewed By Me CXR Interpretation: Yes: Cardiomegaly, Other (mild chf). No: Infiltrates, Fracture Progress Note: Plan: EKG. BNP. CMP. Troponin. CBC. PTT. Prothrombin Time. CXR. Ecotrin 325mg PO. Urinalysis. Patient had a negative echo done, was scheduled for an outpatient stress test with Dr. Patel and was set up for an outpatient visit with Dr. Lee as his primary. Medical Decision Making Medical Decision Making: Upon provider reevaluation patient is feeling better, is medically stable, and requires no further treatment in the ED at this time. Patient will be discharged home . Counseling was provided and all questions were answered regarding diagnosis and need for follow up with dr lee and dr patel cardiology. There is agreement to discharge plan. Return if symptoms persist or worsen. Disposition Counseled Patient/Family Regarding: Studies Performed, Diagnosis, Need For Followup - Disposition Referrals: Shamika Lee MD [Staff Provider] - Disposition: HOME/ ROUTINE Disposition Time: 23:50 Condition: FAIR Additional Instructions: Please return if symptoms recur Instructions: Heart Failure, Adult (DC) Forms: [employer] (Croatian) - Clinical Impression Clinical Impression: CHF (congestive heart failure) - Scribe Statement The provider has reviewed the documentation as recorded by the Scribe (Luis Felipe Rosenberg) Provider Attestation: All medical record entries made by the Scribe were at my direction and personally dictated by me. I have reviewed the chart and agree that the record accurately reflects my personal performance of the history, physical exam, medical decision making, and the department course for this patient. I have also personally directed, reviewed, and agree with the discharge instructions and disposition.
[2018-02-27] MEDS ORDERED: Aspirin 325 mg EC Tablets PO STA (23:54)
[2018-02-28] MEDS ORDERED: Aspirin 325 mg EC Tablets PO ONE (00:08)
[2018-02-28 00:17] LABS: BASO % 0.2 % (0.0-2.0); EOS # 0.5 K/uL (0.0-0.7); EOS % 5.9 % (0.0-4.0); HEMOGLOBIN 11.7 g/dL (12.0-18.0); LYMPH # 1.4 K/uL (1.0-4.3); LYMPH % 17.3 % (20.0-40.0); MEAN CELL VOLUME 86.6 fL (80.0-94.0); MEAN CORPUSCULAR HEMOGLOBIN 29.5 pg (27.0-31.0); MEAN CORPUSCULAR HGB CONC 34.1 g/dL (33.0-37.0); MEAN PLATELET VOLUME 9.7 fL (7.2-11.7); MONO # 0.6 K/uL (0.0-0.8); MONO % 7.7 % (0.0-10.0); NEUT # 5.7 K/uL (1.8-7.0); NEUT % 68.9 % (50.0-75.0); RBC 3.97 Mil/uL (4.40-5.90); RED CELL DISTRIBUTION WIDTH 14.7 % (11.5-14.5); WHITE BLOOD COUNT 8.3 K/uL (4.8-10.8)
[2018-02-28 00:26] LABS: INR 1.1; PROTHROMBIN TIME 12.5 SECONDS (9.7-12.2)
[2018-02-28 00:29] LABS: ALB/GLOB RATIO 0.9 (1.0-2.1); ALBUMIN 3.6 g/dL (3.5-5.0); ALT/SGPT 21 U/L (21-72); AST/SGOT 24 U/L (17-59); BLOOD UREA NITROGEN 18 mg/dL (9-20); GFR AFRICAN-AMERICAN > 60; GFR NON-AFRICAN AMERICAN > 60
[2018-02-28 00:41] LABS: B-TYPE NATRIURETIC PEPTIDE 2310 pg/mL (0-450)
[2018-02-28 02:27] VITALS: BP 152/95; PULSE 90; O2SAT 99
--- NOTE | 2018-02-28 07:49 | RAD ---
Chest x-ray single frontal view History: Shortness of breath. Comparison: 02/25/2018 Findings: Mild to moderate venous congestion. Mild cardiomegaly. Bibasilar breast and nipple shadows. Degenerative changes in the spine. Impression: Mild to moderate venous congestion. Mild cardiomegaly. Bibasilar breast and nipple shadows. Degenerative changes in the spine.
--- NOTE | 2018-03-03 13:47 | CARD ---
APPROVED REPORT EKG Measurement Heart [id number] <Conclusion> Sinus tachycardia Possible Left atrial enlargement Abnormal QRS-T angle, consider primary T wave abnormality Abnormal ECG
== END 2018-02-28 02:00 | disposition home or self-care (01) ==
LOC: C.ER 22:02
DX: I50.9 Heart failure, unspecified (principal)